=== PATIENT | male | born 1995 | race Native Hawaiian/Other Pacific Islander ===

== ENCOUNTER 2017-02-03 20:00 | Emergency (ER) | payer OTHER ==
[~2017-02-03] VITALS: Ht 162.6 cm; Wt 85.0 kg
[~2017-02-03 20:00] MED LIST: LANTUS2P SC; LEVO.15 PO; N7030SS SQ; NOVOINJ3 SQ; ZOLO50TA PO
[2017-02-03 20:02] VITALS: BP 164/91; PULSE 106; RESP 16; TEMP 99.5; O2SAT 98
[2017-02-03] MEDS ORDERED: LANTUS2P (21:32)
[2017-02-03] MEDS ORDERED: NOVORP2 SQ (21:32)
[2017-02-03] MEDS ORDERED: LIDOCAINE HCL 1% 50 ML VIAL INFIL ONE (21:45)
--- NOTE | 2017-02-03 22:32 | RADRPT ---
EXAM DATE/TIME: 02/03/2017 21:59 [place] COMPARISON: No previous studies available for comparison. INDICATIONS : Right toe, 1st digit pain and swelling after cutting nail. MEDICAL HISTORY : None. SURGICAL HISTORY : None. ENCOUNTER: Initial ACUITY: 3 days PAIN SCORE: 10/10 LOCATION: Right toe, 1st digit. FINDINGS: Examination of the first digit of the right foot demonstrates no evidence of fracture or dislocation. No radiopaque foreign bodies are seen. Soft tissues medially of the distal great toe appear mildly swollen.. CONCLUSION: Distal soft tissue swelling. No radiopaque foreign body or acute bony abnormality. Phil Sinha MD on February 03, 2017 at 22:30 Board Certified Radiologist. This report was verified electronically.
[2017-02-03] MEDS ORDERED: SULFAMETHOXAZOLE-TRIMETHOPRIM DS 800-160 MG TAB PO ONE (23:00)
[2017-02-03] MEDS ORDERED: CEPHALEXIN MONOHYDRATE 500 MG CAP PO ONE (23:00)
[2017-02-03] MEDS ORDERED: BACT800T5 PO (23:08)
[2017-02-03] MEDS ORDERED: CEPH-460 PO (23:08)
--- NOTE | 2017-02-03 23:08 | PD ---
HPI Chief Complaint: Injury Time Seen by Provider: 21:25 Travel History International Travel<30 days: No Contact w/Intl Traveler<30days: No Traveled to known affect area: No History of Present Illness HPI 21-year-old male with history of insulin dependent diabetes, here for evaluation of right great toe pain of for the last 2 months. Pain is over the medial aspect of the right great toe. The patient has been trying to clip his toenail correctly and to remove the toenail from growing into the skin. Pain is moderate, constant, worse with palpation. He denies fevers or chills. PFSH Past Medical History Blood Disorders: No Anxiety: No Depression: Yes Cancer: No Cardiovascular Problems: No Diabetes: Yes (insulin dependent) Patient Takes Glucophage: No Diminished Hearing: No Gastrointestinal Disorders: No Psychiatric: Yes Immunizations Current: Yes Seizures: No Thyroid Disease: Yes Past Surgical History Other Surgery: No Social History Alcohol Use: No Tobacco Use: No Substance Use: No Allergies-Medications (Allergen,Severity, Reaction): Coded Allergies: No Known Allergies (Unverified , 02/18/16) Reported Meds & Prescriptions Reported Meds & Active Scripts Active Reported Lantus Inj (Insulin Glargine) 100 Unit/Ml Inj 30 Unit DAILY Novolin R Inj (Insulin Human Regular) 1,000 Unit/10 Ml Vial 0 SQ DIRECTED Sliding Scale As Directed. Review of Systems Except as stated in HPI: all other systems reviewed are Neg Physical Exam Narrative GENERAL: Pleasant, well-developed, well-nourished, awake, alert, comfortable, no apparent distress. CARDIOVASCULAR: Regular rate and rhythm. Bilateral dorsalis pedis pulses are brisk and equal. RESPIRATORY: No accessory muscle use. MUSCULOSKELETAL: Right great toe with moderate medial edema with overlying warmth and erythema, no red streaks, no crepitus, moderately tender, no obvious bony deformity, no ulcerations. NEUROLOGICAL: Awake and alert. No obvious cranial nerve deficits. Motor grossly within normal limits. Normal speech. PSYCHIATRIC: Appropriate mood and affect; insight and judgment normal. Data Data Last Documented VS Vital Signs Date Time Temp Pulse Resp B/P (MAP) Pulse Ox O2 Delivery O2 Flow Rate FiO2 02/03/17 20:02 99.5 106 16 164/91 (115) 98 Room Air Orders Orders Toe (Min 2vws) (9/27/17 ) Lidocaine 1% Inj (50 Ml) (Xylocaine 1% I (02/03/17 21:45) Sulfamet-Trimeth Ds 800-160 Mg (Bactrim (02/03/17 23:00) Cephalexin (Keflex) (02/03/17 23:00) MDM Medical Decision Making Medical Screen Exam Complete: Yes Emergency Medical Condition: Yes Differential Diagnosis Ingrown toenail, cellulitis/paronychia, osteomyelitis Narrative Course Initial vital signs show heart rate 106, blood pressure 164/91, pulse ox 98% on room air, oral temp of 99.5F. Heart rate improved to 91 without any intervention. Right great toe x-ray: Distal soft tissue swelling. No radiopaque foreign body or acute bony abnormality. This is a 21-year-old male with history of insulin dependent diabetes who has an ingrown right toenail with overlying cellulitis/paronychia. There are no ulcerations. No bony abnormalities on x-ray. Digital block was performed and the medial aspect of the great toe was removed. See procedure notes. Patient will be started on oral antibiotics. He is stable for discharge home with outpatient follow-up with podiatry. Patient understands the importance of prompt outpatient follow-up and will try to arrange for a patrol police sergeant appointment this week. He was informed on when to return to the emergency department. He verbalizes understanding and agreement with plan. Procedures Procedure Narrative Right great toe digital block: Right great toe was prepped with ChloraPrep. 2 cc of 1% lidocaine was injected at the base of the proximal and medial to. Tolerated well. No complications. Removal of right great ingrown toenail: Entire toe prepped with ChloraPrep. After digital block was performed on the right great toe, sharp scissors were used to cut from the distal aspect of the medial toenail straight back to the base of the toenail. Medial aspect of the toenail was removed. No purulent drainage expressed. Small amount of bleeding. Tolerated well. No complications. 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 Gan or a patrol police sergeant of your choice this week. Take antibody as prescribed. Perform dressing changes daily. Return to the emergency department for worsening symptoms or any other concerns as discussed. Scripts Cephalexin (Keflex) 500 Mg Cap 500 MG PO Q8H for Infection, #30 CAP 0 Refills Prov: Bryan Hopkins MD 02/03/17 Sulfamethoxazole-Trimethoprim (Bactrim DS) 800-160 Mg Tab 1 TAB PO BID for Infection, #20 TAB 0 Refills Prov: Bryan Hopkins MD 02/03/17 Disposition: 01 DISCHARGE HOME Condition: Stable Bryan Hopkins MD Feb 03, 2017 23:08
== END 2017-02-03 23:41 | disposition home or self-care (01) ==
LOC: NEPD 20:00
DX: L60.0 Ingrowing nail (principal); L03.031 Cellulitis of right toe; E11.9 Type 2 diabetes mellitus without complications; F32.9 Major depressive disorder, single episode, unspecified; E07.9 Disorder of thyroid, unspecified; Z79.4 Long term (current) use of insulin
CPT/HCPCS: 11765; 64450; 73660